=== PATIENT | female | born 1950 | race Caucasian/White ===

== ENCOUNTER → 2017-06-22 | Outpatient (CLI) | payer MEDICARE, OTHER | END | disposition home or self-care (01) | LOC: NUC 10:47 | DX: E05.90 Thyrotoxicosis, unspecified without thyrotoxic crisis or storm (principal) | CPT/HCPCS: 78014; A9516 ==

== ENCOUNTER 2018-11-28 21:07 | Inpatient (IN) | payer MEDICARE, OTHER ==
[2018-11-28] MEDS: IBUPROFEN 600 MG TAB PO (22:24)
[2018-11-28] MEDS: CEFTRIAXONE 1 GM/50 ML (PMX) 50 ML IVPB (22:25)
[2018-11-28] MEDS: SOD CHLORIDE 0.9% 1,000 ML IV (22:25)
[2018-11-28] MEDS: DIPHENHYDRAMINE 50 MG INJ IV (22:25)
[2018-11-28 22:38] LABS: ADD MAN DIFF? NO
[2018-11-28 22:44] LABS: WHITE BLOOD COUNT 9.9 10^3/ul (4.8-10.8)
[2018-11-28 22:44] LABS: BASOPHIL # 0.1 10^3/ul (0.0-0.1); BASOPHILS % 0.5 % (0.0-2.0); EOSINOPHILS # 0.2 10^3/ul (0.0-0.5); EOSINOPHILS % 2.3 % (0.0-7.0); HEMATOCRIT 39.7 % (37.0-47.0); LYMPHOCYTES % 30.4 % (15.0-51.0); MEAN CORPUSCULAR HEMOGLOBIN 29.8 pg (29.0-33.0); MEAN CORPUSCULAR HGB CONC 32.7 g/dl (32.0-37.0); MEAN CORPUSCULAR VOLUME 91.1 fl (82.0-101.0); MEAN PLATELET VOLUME 10.1 fl (7.4-10.4); MONOCYTE # 0.8 10^3/ul (0.3-0.9); MONOCYTES % 8.4 % (0.0-11.0); NEUTROPHIL # 5.8 10^3/ul (1.6-7.5); NEUTROPHILS % 58.1 % (39.0-77.0); PLATELET COUNT 279 10^3/UL (140-415); RED BLOOD COUNT 4.36 10^6/ul (4.20-5.40); RED CELL DISTRIBUTION WIDTH 12.6 % (11.5-14.5)
[2018-11-28 22:47] LABS: ADD UMIC YES; UR ASCORBIC ACID NEGATIVE (NEGATIVE); UR BILIRUBIN (Dip) NEGATIVE (NEGATIVE); UR BLOOD (Dip) 2+ mg/dL (NEGATIVE); UR CLARITY CLEAR (CLEAR); UR COLOR YELLOW (YELLOW); UR GLUCOSE (Dip) NEGATIVE (NEGATIVE); UR KETONES (Dip) NEGATIVE (NEGATIVE); UR LEUKOCYTE ESTERASE (Dip) NEGATIVE Leu/ul (NEGATIVE); UR NITRITE (Dip) NEGATIVE (NEGATIVE); UR RBC 1 /HPF (0-5); UR SPECIFIC GRAVITY (Dip) 1.025 (1.003-1.030); UR TOTAL PROTEIN (Dip) NEGATIVE (NEGATIVE); UR UROBILINOGEN (Dip) NEGATIVE (NEGATIVE); UR WBC 1 /HPF (0-5)
[2018-11-28 23:00] LABS: ALANINE AMINOTRANSFERASE 31 IU/L (13-69); ALBUMIN 4.4 g/dl (3.3-4.9); ALBUMIN/GLOBULIN RATIO 1.33; ALKALINE PHOSPHATASE 56 IU/L (42-121); ANION GAP 9 (5-13); ASPARTATE AMINO TRANSFERASE 33 IU/L (15-46); BILIRUBIN,INDIRECT 0.4 mg/dl (0-1.1); BILIRUBIN,TOTAL 0.4 mg/dl (0.2-1.3); BLOOD UREA NITROGEN 21 mg/dl (7-20); CALCIUM 9.5 mg/dl (8.4-10.2); CARBON DIOXIDE 27 mmol/L (21-31); CHLORIDE 108 mmol/L (97-110); CREATININE 0.71 mg/dl (0.44-1.00); Estimated GFR > 60 mL/min (>60); GLUCOSE 111 mg/dl (70-220); LIPASE 126 U/L (23-300); POTASSIUM 3.9 mmol/L (3.5-5.1); SODIUM 144 mmol/L (135-144); TOTAL PROTEIN 7.7 g/dl (6.1-8.1)
[2018-11-28 23:11] LABS: TROPONIN-I < 0.012 ng/ml (0.000-0.120)
[2018-11-28] MEDS: VANCOMYCIN 1 GM (PMX) 250 ML IVPB (23:40)
[2018-11-29] MEDS ORDERED: DOCUSATE SODIUM 100 MG CAP PO (03:00)
[2018-11-29] MEDS ORDERED: HYDROCODONE/APAP (5/325) TAB PO (03:00)
[2018-11-29] MEDS ORDERED: NACL 0.9% 3 ML SYG IV (03:00)
[2018-11-29] MEDS ORDERED: VANCOMYCIN IV PER PHARMACY XX (03:00)
[2018-11-29] MEDS ORDERED: ONDANSETRON 4 MG TAB PO (03:00)
[2018-11-29] MEDS ORDERED: ACETAMINOPHEN 325 MG TAB PO (03:00)
[2018-11-29] MEDS: FAMOTIDINE 20 MG TAB PO ×3 (08:35→21:00)
[2018-11-29] MEDS: HEPARIN 5,000 UNIT/1 ML VIAL SC ×2 (08:37→21:02)
[2018-11-29] MEDS: IOHEXOL 14.3 MG(I)/ML (ADULT) BTL PO (09:37)
[2018-11-29 10:19] LABS: HEPATITIS B SURFACE ANTIGEN NEGATIVE (NEGATIVE); THYROID STIMULATING HORMONE 0.347 MIU/L (0.465-4.680)
[2018-11-29 10:36] LABS: HEPATITIS C VIRAL ANTIBODY NEGATIVE (NEGATIVE)
[2018-11-29 16:59] LABS: RAPID PLASMA REAGIN NONREACTIVE (NR)
[2018-11-29] MEDS: FOSFOMYCIN 3 GM PACKET PO (18:29)
[2018-11-29] MEDS: TRIMETHOPRIM/SULFAMETHOX (DS) TAB PO (21:00)
[2018-11-29] MEDS: VANCOMYCIN 750 MG (PMX) 250 ML IVPB (22:43)
[2018-11-30 05:24] LABS: ADD MAN DIFF? NO
[2018-11-30 05:51] LABS: ALANINE AMINOTRANSFERASE 37 IU/L (13-69); ALKALINE PHOSPHATASE 55 IU/L (42-121); ANION GAP 7 (5-13); ASPARTATE AMINO TRANSFERASE 29 IU/L (15-46); BILIRUBIN,INDIRECT 0.3 mg/dl (0-1.1); BILIRUBIN,TOTAL 0.3 mg/dl (0.2-1.3); BLOOD UREA NITROGEN 13 mg/dl (7-20); CALCIUM 9.2 mg/dl (8.4-10.2); CARBON DIOXIDE 23 mmol/L (21-31); CHLORIDE 112 mmol/L (97-110); CREATININE 0.76 mg/dl (0.44-1.00); Estimated GFR > 60 mL/min (>60); GLUCOSE 98 mg/dl (70-220); POTASSIUM 4.5 mmol/L (3.5-5.1); SODIUM 142 mmol/L (135-144)
[2018-11-30 05:52] LABS: ALBUMIN/GLOBULIN RATIO 1.53; CHOL/HDL RATIO 3.9 RATIO; HDL CHOLESTEROL 55 mg/dl (33-92); LDL CHOLESTEROL,CALCULATED 128 mg/dl; TOTAL PROTEIN 6.6 g/dl (6.1-8.1); TRIGLYCERIDES 168 mg/dl (0-149)
[2018-11-30 05:56] LABS: WHITE BLOOD COUNT 7.8 10^3/ul (4.8-10.8)
[2018-11-30 05:56] LABS: BASOPHILS % 0.5 % (0.0-2.0); EOSINOPHILS # 0.3 10^3/ul (0.0-0.5); EOSINOPHILS % 3.8 % (0.0-7.0); HEMATOCRIT 39.8 % (37.0-47.0); HEMOGLOBIN 12.8 g/dl (12.0-16.0); LYMPHOCYTES # 3.4 10^3/ul (0.8-2.9); LYMPHOCYTES % 43.9 % (15.0-51.0); MEAN CORPUSCULAR HEMOGLOBIN 29.9 pg (29.0-33.0); MEAN CORPUSCULAR HGB CONC 32.2 g/dl (32.0-37.0); MEAN PLATELET VOLUME 10.1 fl (7.4-10.4); MONOCYTE # 0.6 10^3/ul (0.3-0.9); MONOCYTES % 7.5 % (0.0-11.0); NEUTROPHIL # 3.5 10^3/ul (1.6-7.5); PLATELET COUNT 245 10^3/UL (140-415); RED BLOOD COUNT 4.28 10^6/ul (4.20-5.40); RED CELL DISTRIBUTION WIDTH 12.9 % (11.5-14.5)
[2018-11-30 06:11] LABS: CHOLESTEROL 217 mg/dl (100-200)
[2018-11-30 08:27] LABS: HEMOGLOBIN A1C 5.6 % (0-5.9)
[2018-11-30] MEDS: HEPARIN 5,000 UNIT/1 ML VIAL SC (08:36)
[2018-11-30] MEDS: TRIMETHOPRIM/SULFAMETHOX (DS) TAB PO (08:37)
[2018-11-30] MEDS: FAMOTIDINE 20 MG TAB PO (08:37)
== END 2018-11-30 16:30 | disposition home or self-care (01) | DRG 603 ==
LOC: PP2 22:56 → E/R 21:07
DX: L03.115 Cellulitis of right lower limb (principal); N39.0 Urinary tract infection, site not specified; E04.2 Nontoxic multinodular goiter; E78.5 Hyperlipidemia, unspecified; E05.90 Thyrotoxicosis, unspecified without thyrotoxic crisis or storm; R63.5 Abnormal weight gain; B96.20 Unspecified Escherichia coli [E. coli] as the cause of diseases classified elsewhere; F17.200 Nicotine dependence, unspecified, uncomplicated; Z68.25 Body mass index [BMI] 25.0-25.9, adult
CPT/HCPCS: 36415; 71250; 73610-RT; 74176; 76536; 80053; 80061; 81001; 83036; 83690; 84443; 84484; 85025; 86592; 86803; 87040-91; 87075; 87086; 87340; 93005; 96365; 96375; 99285-25